=== PATIENT | male | born 1975 | race Caucasian/White ===

== ENCOUNTER 2017-04-11 20:33 | Emergency (ER) | payer OTHER ==
--- NOTE | 2017-04-11 22:00 | RAD ---
INDICATION: Low back pain. COMPARISON: There are no prior studies available for comparison. TECHNIQUE: Contiguous axial sections were obtained beginning above the T12 vertebra and continuing through the L5-S1 disc space. Images were reconstructed in the sagittal and coronal planes. FINDINGS: The vertebra are in normal alignment. No fracture is seen. There is spina bifida occulta at the S1 level. At the L3-L4 level there is a mild broad-based disc bulge and mild hypertrophic changes within the facet joints. There is mild to moderate spinal canal narrowing and mild bilateral neural foraminal narrowing. At the L4-L5 level there is a [id number] broad-based disc bulge and mild hypertrophic changes within the facet joints. There is mild to moderate spinal canal narrowing and mild to moderate bilateral neural foraminal narrowing. At the L5-S1 level there is a minimal broad-based disc bulge. There are mild hypertrophic changes within the facet joints. No significant spinal canal narrowing is seen. Neural foramen appear patent on both sides. IMPRESSION: MILD TO MODERATE DEGENERATIVE DISC DISEASE AND FACET OSTEOARTHRITIS GIVING RISE TO MILD TO MODERATE SPINAL CANAL NARROWING AT THE L3-L4 AND L4-L5 LEVELS. THERE IS ALSO NEURAL FORAMINAL NARROWING DESCRIBED. IF THE PATIENT'S SYMPTOMS PERSIST RECOMMEND MR IMAGING FOR FURTHER EVALUATION.
--- NOTE | 2017-04-11 22:55 | ED ---
Back Pain - HPI Summary HPI Summary: 41M presents with chronic back pain for a year. He came wanting an MRI. He has not had previous imaging of his back. His primary is managing his pain with muscle relaxer and narcotics. He admits to tingling down his legs. He states pain radiates to hips. He denies any new injury. He denies any saddle anaesthesia or loss of bowel or bladder. He denies any fever or IV drug use. - History of Current Complaint Chief Complaint: EDBackInjuryPain Stated Complaint: LOWER BACK PAIN Time Seen by Provider: 04/11/17 20:47 Pain Intensity: 8 - Allergies/Home Medications Allergies/Adverse Reactions: Allergies Allergy/AdvReac Type Severity Reaction Status Date / Time No Known Allergies Allergy Verified 09/30/13 19:48 PMH/Surg Hx/FS Hx/Imm Hx Endocrine/Hematology History: Denies: Hx Anticoagulant Therapy Cardiovascular History: Denies: Hx Pacemaker/ICD Sensory History: Denies: Hx Hearing Aid Psychiatric History: Denies: Hx Panic Disorder - Surgical History Surgery Procedure, Year, and Place: LEFT SHOULDER SURGERY ARTHROSCOPY, AIRPOCKET CYST REMOVED FROM LUNG. thyroid cyst from neck removed Infectious Disease History: No Infectious Disease History: Reports: Traveled Outside the [place] in Last 30 Days - Family History Known Family History: Positive: Cardiac Disease - Social History Alcohol Use: Occasionally Substance Use Type: Reports: None Smoking Status (MU): Former Smoker Review of Systems Negative: Fever Negative: Chest Pain Negative: Shortness Of Breath Positive: Myalgia - back pain All Other Systems Reviewed And Are Negative: Yes Physical Exam Triage Information Reviewed: Yes Vital Signs On Initial Exam: Initial Vitals Temp Pulse Resp BP Pulse Ox 98.3 F 67 18 132/92 97 04/11/17 20:37 04/11/17 20:37 04/11/17 20:37 04/11/17 20:37 04/11/17 20:37 Vital Signs Reviewed: Yes Appearance: Positive: Well-Appearing Skin: Positive: Warm, Dry Head/Face: Positive: Normal Head/Face Inspection Eyes: Positive: Normal, Conjunctiva Clear Respiratory/Lung Sounds: Positive: Clear to Auscultation, Breath Sounds Present Cardiovascular: Positive: Normal, RRR Musculoskeletal: Positive: Strength/ROM Intact - back, Other - pos SLR, tender across lower back, good pulses Neurological: Positive: Reflexes Intact - patella Diagnostics - Vital Signs Vital Signs Temp Pulse Resp BP Pulse Ox 04/11/17 20:46 97 F 67 16 132/92 99 04/11/17 20:37 98.3 F 67 18 132/92 97 - Laboratory Lab Statement: Any lab studies that have been ordered have been reviewed, and results considered in the medical decision making process. - CT back CT Interpretation: Positive (See Comments) - IMPRESSION: MILD TO MODERATE DEGENERATIVE DISC DISEASE AND FACET OSTEOARTHRITIS GIVING RISE TO MILD TO MODERATE SPINAL CANAL NARROWING AT THE L3-L4 AND L4-L5 LEVELS. THERE IS ALSO NEURAL FORAMINAL NARROWING DESCRIBED. IF THE PATIENT'S SYMPTOMS PERSIST RECOMMEND MR IMAGING FOR FURTHER EVALUATION. CT Interpretation Completed By: Radiologist Back Pain Course/Dx - Course Course Of Treatment: 41M presents with chronic back pain for a year. He came wanting an MRI. He has not had previous imaging of his back. His primary is managing his pain with muscle relaxer and narcotics. He admits to tingling down his legs. He states pain radiates to hips. He denies any new injury. He denies any saddle anaesthesia or loss of bowel or bladder. He denies any fever or IV drug use. on exam tender across back, neurovascular intact. pos SLR. discussed will get CT as can not get MRI if no warning signs for back pain. CT shows spinal column narrowing. explained will need to get MRI outpatient to follow up on this. decided not to go anything about pain plan and have follow up with primary instead. patient understands and agrees with plan. - Diagnoses Differential Diagnosis/HQI/PQRI: Positive: Herniated Disc, Strain, Sprain Provider Diagnoses: Back pain Discharge - Discharge Plan Condition: Good Disposition: HOME Patient Education Materials: Back Pain (ED) Referrals: Isai Triana DO [Primary Care Provider] - Additional Instructions: Take pain medication as prescribed Follow up with primary for continued care Return to ED if develop any new or worsening symptoms
[2017-04-11 23:17] VITALS: BP 119/74
== END 2017-04-11 23:17 | disposition home or self-care (01) ==
LOC: ED 20:33
DX: M54.9 Dorsalgia, unspecified (principal)
CPT/HCPCS: 72131; 99282